=== PATIENT | female | born 1970 | race African-American/Black ===

== ENCOUNTER → 2017-04-20 | Outpatient (CLI) | payer MEDICARE ==
[~2017-04-20] MED LIST: APRESOLINE PO; ARAVA10 MG PO; ASPIRIN PO; CLONIDINE PO; COLACE PO; LISINOPRIL PO; LOPRESSOR PO; MAGNESIUM250 M1 PO; OMEPRAZOLE20 M1 PO; PHOSLO667 MG PO; PHOSPHA; PROGRAF1 MG PO; RENAPLEX; TYLOX1 CAP 5/50 DOB; [UNRECOGNIZED DRUG - OTHER] PO
--- NOTE | ~2017-04-20 | MY25 ---
[facility] A Service of [facility] RADIOLOGY TEXT RESULTS PATIENT: JORGE ALBERTO KNOTT LOCATION: [facility] : 66 UNIT #: [id number] AGE: [address]: Annel Kearney MD SEX: F ORDER DR: [id number] [id number] [facility]. [place], [place] [address] [id number] O MR#: [id number] Acc #: [id number] NAME: JORGE ALBERTO KNOTT : 1970 SEX: F STUDY DATE/TIME: 04/20/2017 10:24 UNIT: [facility] ROOM: STUDY DESCRIPTION: ISRAEL THOMPSON W/ CAD UNI RT Attending Physician: Annel Kearney M.D. Ordering Physician: Annel Kearney M.D. Primary Care Physician: Annel Kearney M.D. MEDICAL IMAGING REPORT This report is preliminary unless electronic signature is present EXAM Right digital diagnostic mammogram INDICATIONS Palpable lump/area of thickening in the medial right breast. Area noticeable for the past 5 weeks. PROCEDURE CC, MLO and true lateral views of the right breast obtained on a digital mammography unit, FDA-approved CAD device utilized. COMPARISON 05/29/16 FINDINGS Scattered fibroglandular density. There is no dominant mass or suspicious calcification. Targeted ultrasound evaluation of the right breast shows a prominent thrombosed vein in the superficial medial right breast at the 2 o'clock position. It is completely thrombosed. IMPRESSION Superficial thrombosed vein in the medial right breast at the 2 o'clock position, in the area of patient's palpable concern. Patients over the age of 40 are entered into a reminder system with target due date for the next mammogram. A result letter will also be sent to the patient. BIRADS: 2 Benign Finding [facility] A Service [facility] RADIOLOGY TEXT RESULTS PATIENT: JORGE ALBERTO KNOTT LOCATION: [facility] : 66 UNIT #: [id number] AGE: [address]: Annel Kearney MD SEX: F ORDER DR: Dictated by... Yonis Villeda M.D. THIS IS AN ELECTRONICALLY VERIFIED REPORT Yonis Villeda M.D. at 04/23/2017 1:56 PM EED/psc TD: 04/20/2017 21:47 JOB #: [id number] MEDICAL IMAGING REPORT Page 1 of 1 COPY
--- NOTE | ~2017-04-20 | US24 ---
[facility] A Service of [facility] RADIOLOGY TEXT RESULTS PATIENT: JORGE ALBERTO KNOTT LOCATION: [facility] : 66 UNIT #: [id number] AGE: [address]: Annel Kearney MD SEX: F ORDER DR: [id number] [address] [address] [id number] O MR#: [id number] Acc #: [id number] NAME: JORGE ALBERTO KNOTT : 1970 SEX: F STUDY DATE/TIME: 04/20/2017 11:00 UNIT: [facility] ROOM: STUDY DESCRIPTION: US Breast Unilateral Attending Physician: Annel Kearney M.D. Ordering Physician: Annel Kearney M.D. Primary Care Physician: Annel Kearney M.D. MEDICAL IMAGING REPORT This report is preliminary unless electronic signature is present EXAM Right breast ultrasound INDICATION Area of palpable concern and lump in the medial right breast for the past 5 weeks. PROCEDURE Garcia-scale Doppler imaging in the area of palpable concern at the 2 o'clock position. COMPARISON Concurrently performed diagnostic mammogram. FINDINGS/IMPRESSION Refer to separately dictated diagnostic mammogram for complete workup, findings and recommendations. BIRADS: 2 Benign finding. Dictated by... Yonis Villeda M.D. THIS IS AN ELECTRONICALLY VERIFIED REPORT Yonis Villeda M.D. at 04/23/2017 1:56 PM EED/adam TD: 04/20/2017 21:46 JOB #: [id number] MEDICAL IMAGING REPORT [facility] A Service of [facility] RADIOLOGY TEXT RESULTS PATIENT: JORGE ALBERTO KNOTT LOCATION: [facility] : 66 UNIT #: [id number] AGE: [address]: Annel Kearney MD SEX: F ORDER DR: Page 1 of 1 COPY
== END | disposition home or self-care (01) ==
LOC: CMAM 09:52
DX: N63 Unspecified lump in breast (principal); N64.89 Other specified disorders of breast; I82.890 Acute embolism and thrombosis of other specified veins
CPT/HCPCS: 76641; G0206